=== PATIENT | female | born 1925 | race Caucasian/White ===

== ENCOUNTER 2016-08-10 16:15 | Inpatient (IN) ==
[2016-08-10] MEDS: CRANBERRY 450 MG PO SCH (20:48)
[2016-08-10] MEDS: Aspirin Enteric Coated 325 MG Tablet PO SCH (21:00)
[2016-08-10] MEDS: levETIRAcetam 250 MG TABLET PO SCH (21:00)
[2016-08-10] MEDS: *HR* OxyCODONE Immed Rel 5 MG TABLET PO PRN (21:01)
[2016-08-10] MEDS: PHENYTOIN 200 MG PO SCH (21:01)
[2016-08-11] MEDS: *HR* OxyCODONE Immed Rel 5 MG TABLET PO PRN ×3 (04:23→20:27)
[2016-08-11 05:43] LABS: Basophils % 0.4 %; Eosinophils # 0.3 K/mcL (0.0-0.6); Eosinophils % 6.5 %; Hematocrit 23.6 % (35.3-44.9); Immature Granulocytes % 0.2 % (0-4); Lymphocytes % 19.4 %; Mean Corpuscular HGB Conc 33.9 g/dL (31.6-35.5); Mean Corpuscular Hemoglobin 30.5 pg (28.0-33.3); Mean Corpuscular Volume 90.1 fL (83.0-100.0); Monocytes # 0.5 K/mcL (0.0-1.3); Monocytes % 9.1 %; Neutrophils # 3.4 K/mcL (1.6-8.9); Platelet Count 335 K/mcL (140-400); Red Blood Count 2.62 M/mcL (3.82-4.97); Red Cell Distribution Width 14.6 % (11.5-14.5); Segmented Neutrophils % 64.4 %
[2016-08-11 05:44] LABS: Prothrombin Time 11.2 Seconds (9.4-12.1)
[2016-08-11 05:47] LABS: Activated Partial Thrombo Time 29.5 Seconds (26.0-36.0)
[2016-08-11 05:54] LABS: Calcium 8.2 mg/dL (8.6-10.8)
[2016-08-11] MEDS: Cholecalciferol (D-3) 1,000 UNIT TABLET PO SCH (08:24)
[2016-08-11] MEDS: Aspirin Enteric Coated 325 MG Tablet PO SCH ×2 (08:25→20:27)
[2016-08-11] MEDS: levETIRAcetam 250 MG TABLET PO SCH ×2 (08:25→20:27)
[2016-08-11] MEDS: Furosemide 20 MG TABLET PO SCH (08:25)
[2016-08-11] MEDS: CRANBERRY 450 MG PO SCH (08:27)
[2016-08-11] MEDS: PHENYTOIN 100 MG PO SCH (08:27)
--- NOTE | 2016-08-11 12:31 | Internal Med History&Physical ---
Date of Encounter: 08/11/16 Time of Encounter: 11:59 Internal Medicine - H&P: HPI Chief complaint: Patient had a fall and fractured humerus and her femur Admitted From: Hospital to Hospital Transfer Plans for Post Hospital Care: Home History of present illness: Ms. Pena is a 89 year old female She fell fractured femur and her humerus is here now for rehabilitation. Weightbearing as tolerated Past Med Surg Social Fam HX - Past Medical History Medical history: arthritis, CVA, GERD, hyperlipidemia, hypertension, osteoporosis, seizures, thyroid disease Psychiatric history: no psych history - Past Surgical History Surgical History: cataract - Social History Smoking Status: Never smoker Smokeless Tobacco Status: No Alcohol use: none Drug use: none - Family History Mother Living Status: Hx Family Cancer: Yes (Breast) Father Living Status: Hx Family Cardiac Disorders: Yes (OK) Hx Family Respiratory Disorders: No Hx Family Cancer: No Hx Family GI Disorders: No Hx Family Endocrine Disorder: No Hx Family Neuromuscular Disorders: No Hx Family Neurologic Disorders: No Hx Family HEENT Disorders: No Hx Family Autoimmune Disorders: No Internal Medicine - H&P: Meds Furosemide [Lasix] 20 mg PO DAILY 06/22/15 [History] LevETIRAcetam [Keppra] 500 mg PO BID 06/22/15 [History] Losartan Potassium [Cozaar] 50 mg PO BID 06/22/15 [History] Simvastatin [Zocor] 40 mg PO HS 06/22/15 [History] Cholecalciferol (D-3) [Vitamin D] 2,000 unit PO DAILY 08/23/15 [History] Oxybutynin Chloride [Ditropan Xl] 10 mg PO DAILY 08/23/15 [History] Levothyroxine [Synthroid] 100 mcg PO QAM 10/09/15 [History] Cranberry Fruit Concentrate [Cranberry] 450 mg PO BID 08/07/16 [History] Pantoprazole Sodium [Protonix] 20 mg PO BID 08/07/16 [History] Polyethylene Glycol 3350 [MiraLAX bowel prep] 17 gm PO DAILY 08/07/16 [History] Aspirin Enteric Coated [Aspirin EC] 325 mg PO BID 18 Days 08/10/16 [Rx] OxyCODONE Immed Rel [Roxicodone 5 MG] 5 mg PO Q6HR PRN #20 tablet 08/10/16 [Rx] Phenytoin ER [Dilantin ER] 100 mg PO DAILY #30 capsule 08/10/16 [Rx] Phenytoin ER [Dilantin ER] 200 mg PO HS #56 capsule 08/10/16 [Rx] Allergies No Known Allergies Allergy (Verified 10/09/15 17:48) All Systems PM: A 10-system review of systems was performed and is negative for pertinent findings except as documented above in the HPI. - Constitutional Vitals: Temp Pulse Resp BP Pulse Ox 98 F 64 12 143/59 96 08/11/16 08:00 08/11/16 09:49 08/11/16 09:49 08/11/16 09:49 08/11/16 09:49 - Head Head exam: Present: atraumatic, normal inspection, normocephalic - Neck Neck exam general surgery: Present: supple, trachea midline. Absent: lymphadenopathy - Respiratory Respiratory exam: Present: CTAB. Absent: accessory muscle use, rales, rhonchi, wheezes - Cardiovascular Cardiovascular exam: Present: RRR, +S1, +S2. Absent: diastolic murmur, gallop, rubs, systolic murmur - Expanded Upper Extremities Exam Shoulder exam: Present: tenderness Internal Med - H&P Results - Labs CBC & Chem 7: 08/11/16 05:00 08/11/16 05:00 Labs: Short CBC 08/11/16 Range/Units 05:00 WBC 5.3 (4.3-11.1) K/mcL Hgb 8.0 L D (11.5-15.4) g/dL Hct 23.6 L (35.3-44.9) % Plt Count 335 (140-400) K/mcL Neutrophils # 3.4 (1.6-8.9) K/mcL BMP 08/11/16 05:00 Sodium 142 Potassium 4.0 Chloride 111 H Carbon Dioxide 22 BUN 34 H Creatinine 1.05 Glucose 96 Calcium 8.2 L Lab generally is good
[2016-08-11] MEDS: Acetaminophen 325 MG TABLET PO PRN (15:31)
[2016-08-11] MEDS: PHENYTOIN 200 MG PO SCH (20:38)
[2016-08-12] MEDS: Acetaminophen 325 MG TABLET PO PRN ×3 (04:26→20:50)
[2016-08-12] MEDS: *HR* OxyCODONE Immed Rel 5 MG TABLET PO PRN ×4 (04:26→20:50)
[2016-08-12] MEDS: levETIRAcetam 250 MG TABLET PO SCH ×2 (07:47→20:51)
[2016-08-12] MEDS: Furosemide 20 MG TABLET PO SCH (07:48)
[2016-08-12] MEDS: Aspirin Enteric Coated 325 MG Tablet PO SCH ×2 (07:48→20:50)
[2016-08-12] MEDS: Cholecalciferol (D-3) 1,000 UNIT TABLET PO SCH (07:48)
[2016-08-12] MEDS: PHENYTOIN 100 MG PO SCH (07:49)
[2016-08-12] MEDS: PHENYTOIN 200 MG PO SCH (20:51)
[2016-08-13] MEDS: Furosemide 20 MG TABLET PO SCH (09:15)
[2016-08-13] MEDS: levETIRAcetam 250 MG TABLET PO SCH ×2 (09:15→21:11)
[2016-08-13] MEDS: Aspirin Enteric Coated 325 MG Tablet PO SCH ×2 (09:15→21:10)
[2016-08-13] MEDS: Cholecalciferol (D-3) 1,000 UNIT TABLET PO SCH (09:15)
[2016-08-13] MEDS: *HR* OxyCODONE Immed Rel 5 MG TABLET PO PRN ×3 (09:16→21:10)
[2016-08-13] MEDS: PHENYTOIN 100 MG PO SCH (09:16)
--- NOTE | 2016-08-13 14:21 | Internal Med Progress Note ---
Date of Encounter: 08/13/16 Time of Encounter: 14:17 - Assessment and plan (1) Fractures involving multiple body regions Current Visit: Yes Status: Acute Assessment and plan: Patient has a left humeral fracture left femur fracture. She cannot use her left arm and is nonweightbearing. - Time Spent With Patient less than 15 minutes - Constitutional Vitals: Temp Pulse Resp BP Pulse Ox 97.9 F 66 16 125/55 96 08/13/16 07:00 08/13/16 07:00 08/13/16 07:00 08/13/16 07:00 08/13/16 07:00 - Head Head exam: Present: atraumatic, normal inspection, normocephalic - Neck Neck exam general surgery: Present: supple, trachea midline. Absent: lymphadenopathy - Respiratory Respiratory exam: Present: CTAB. Absent: accessory muscle use, rales, rhonchi, wheezes - Cardiovascular Cardiovascular exam: Present: RRR, +S1, +S2. Absent: diastolic murmur, gallop, rubs, systolic murmur Internal Medicine: Result - Labs CBC & Chem 7: 08/11/16 05:00 08/11/16 05:00 Labs: All problem Mrs. Li she can use her arm due to her humeral fracture on the left. Now they are saying she is nonweightbearing on her left leg. And she really is able to do minimal. So the staff is going to recommend discharge. - ABG Interpretation ABG results: PT/INR, D-dimer PT 11.2 Seconds (9.4-12.1) 08/11/16 05:00 - VTE Documentation of Mechanical Device: Graduated compression elastic hosiery Consult Discharge Plan - Plan Referrals: Paul Tineo DO [Primary Care Provider] - 08/25/16 1:30 pm ( 2. Paul Tineo DO (internal Medicine) ) Harman Rebolledo MD [Partnered Physician] - 08/21/16 11:20 am (follow up appointment)
--- NOTE | 2016-08-13 15:25 | Psychological Evaluation ---
Date of Encounter: 08/13/16 Time of Encounter: 10:30 History of Present Illness History of present illness: Ms. Pena is an 89 year old female admitted to [facility] after a fall at her home in which she fractured her humerus and her femur (left). She was previously a patient at [facility] October 2015 for rehabilitation following a CVA. She was seen on this date to assess her current cognitive and emotional functioning. Past Medical History Medical history: Significant for arthritis, CVA (2016), GERD, hyperlipidemia, HTN, osteoporosis, seizures and thyroid disease. - Psychiatric History Psychiatric history: Reports: no psych history (There is no known family history of psychiatric or mental health issues.) Home Medications and Allergies Furosemide [Lasix] 20 mg PO DAILY 06/22/15 [History] LevETIRAcetam [Keppra] 500 mg PO BID 06/22/15 [History] Losartan Potassium [Cozaar] 50 mg PO BID 06/22/15 [History] Simvastatin [Zocor] 40 mg PO HS 06/22/15 [History] Cholecalciferol (D-3) [Vitamin D] 2,000 unit PO DAILY 08/23/15 [History] Oxybutynin Chloride [Ditropan Xl] 10 mg PO DAILY 08/23/15 [History] Levothyroxine [Synthroid] 100 mcg PO QAM 10/09/15 [History] Cranberry Fruit Concentrate [Cranberry] 450 mg PO BID 08/07/16 [History] Pantoprazole Sodium [Protonix] 20 mg PO BID 08/07/16 [History] Polyethylene Glycol 3350 [MiraLAX bowel prep] 17 gm PO DAILY 08/07/16 [History] Aspirin Enteric Coated [Aspirin EC] 325 mg PO BID 18 Days 08/10/16 [Rx] OxyCODONE Immed Rel [Roxicodone 5 MG] 5 mg PO Q6HR PRN #20 tablet 08/10/16 [Rx] Phenytoin ER [Dilantin ER] 100 mg PO DAILY #30 capsule 08/10/16 [Rx] Phenytoin ER [Dilantin ER] 200 mg PO HS #56 capsule 08/10/16 [Rx] Allergies No Known Allergies Allergy (Verified 10/09/15 17:48) Social History - Social History Social History: Ms. Pena is a and lives with her daughter. She has reportedly been a for over 30 years. She has two sons and one daughter and described being very close to her children and their families. Her children provide her daily care and supervision. She stated that she does not do anything at her home because "they won't let me". Her children manage the household and her medications. She manages her own finances. Her typical day consists of playing euchre, watching TV, reading, drawing/coloring and playing solitaire. - Tobacco Use Smoking Status: Never smoker - Alcohol Use Alcohol Use: none Cognitive/Emotional Assessment - Cognitive Ability Additional Findings: Ms. Pena was alert, attentive and partially oriented (provided correct information for person and time but gave place as "[place]"). Immediate recall, confrontational naming and auditory comprehension were adequate. She was unable to do rote arithmetic and performed in the moderate-mildly impaired range on a measure of delayed verbal recall. She exhibited problems with storage and retrieval of new information. Her performance was not aided with recognition (multiple choice) cueing. Speech was clear, fluent and effective. Thought processes were logical and coherent. She was noted to be talkative and thought processes were tangential. - Emotional Status Additional Findings: Ms. Pena was pleasant, cooperative and friendly. She described her current mood as "fair" and acknowledged that she feels distressed at times that she is "putting pressure on my kids". She worries about being a "burden". She described being close to her family and enjoying watching her grandchildren play sports (soccer and softball). She spoke with pride at their accomplishments. Assessment & Plan - Diagnosis (1) Adjustment disorder with mixed anxiety and depressed mood - Treatment Plan Treatment Plan/Recommendations: Will follow Ms. Pena to provide supportive counseling as needed while she is an inpatient at [facility].
[2016-08-13] MEDS: Acetaminophen 325 MG TABLET PO PRN (21:11)
[2016-08-13] MEDS: PHENYTOIN 200 MG PO SCH (21:16)
[2016-08-14] MEDS: *HR* OxyCODONE Immed Rel 5 MG TABLET PO PRN ×4 (04:37→20:04)
[2016-08-14] MEDS: Cholecalciferol (D-3) 1,000 UNIT TABLET PO SCH (09:34)
[2016-08-14] MEDS: levETIRAcetam 250 MG TABLET PO SCH ×2 (09:35→20:03)
[2016-08-14] MEDS: PHENYTOIN 100 MG PO SCH (09:36)
[2016-08-14] MEDS: Furosemide 20 MG TABLET PO SCH (09:36)
[2016-08-14] MEDS: Aspirin Enteric Coated 325 MG Tablet PO SCH ×2 (09:36→20:01)
--- NOTE | 2016-08-14 13:45 | Internal Med Progress Note ---
Date of Encounter: 08/14/16 Time of Encounter: 13:43 - Assessment and plan (1) Fractures involving multiple body regions Current Visit: Yes Status: Acute Assessment and plan: Fractured both left humerus left femur. She is nonweightbearing. She transfers her - Time Spent With Patient less than 15 minutes - Subjective Interval history: Patient states his shoulder still hurts but otherwise she said she is doing okay - Constitutional Vitals: Temp Pulse Resp BP Pulse Ox 98.3 F 71 16 134/58 98 08/14/16 07:38 08/14/16 07:38 08/14/16 07:38 08/14/16 07:38 08/14/16 07:38 - Head Head exam: Present: atraumatic, normal inspection, normocephalic - Neck Neck exam general surgery: Present: supple, trachea midline. Absent: lymphadenopathy - Respiratory Respiratory exam: Present: CTAB. Absent: accessory muscle use, rales, rhonchi, wheezes - Cardiovascular Cardiovascular exam: Present: RRR, +S1, +S2. Absent: diastolic murmur, gallop, rubs, systolic murmur Internal Medicine: Result - Labs CBC & Chem 7: 08/11/16 05:00 08/11/16 05:00 Labs: Lab is stable - ABG Interpretation ABG results: PT/INR, D-dimer PT 11.2 Seconds (9.4-12.1) 08/11/16 05:00 - VTE Documentation of Mechanical Device: Graduated compression elastic hosiery Consult Discharge Plan - Plan Referrals: Paul Tineo DO [Primary Care Provider] - 08/25/16 1:30 pm ( 2. Paul Tineo DO (internal Medicine) ) Harman Rebolledo MD [Partnered Physician] - 08/21/16 11:20 am (follow up appointment)
[2016-08-14] MEDS: Acetaminophen 325 MG TABLET PO PRN (14:26)
[2016-08-14] MEDS: PHENYTOIN 200 MG PO SCH (20:04)
[2016-08-15] MEDS: *HR* OxyCODONE Immed Rel 5 MG TABLET PO PRN (08:26)
[2016-08-15] MEDS: Cholecalciferol (D-3) 1,000 UNIT TABLET PO SCH (08:27)
[2016-08-15] MEDS: levETIRAcetam 250 MG TABLET PO SCH ×2 (08:27→19:44)
[2016-08-15] MEDS: Aspirin Enteric Coated 325 MG Tablet PO SCH ×2 (08:27→19:42)
[2016-08-15] MEDS: PHENYTOIN 100 MG PO SCH (08:28)
[2016-08-15] MEDS: Furosemide 20 MG TABLET PO SCH (08:28)
[2016-08-15] MEDS: Acetaminophen 325 MG TABLET PO PRN (09:45)
--- NOTE | 2016-08-15 10:30 | Physician Discharge Referral ---
ExtendedCare Referral Info Transfer To: [facility] Level of Care: Skilled - Diagnosis (1) Shoulder fracture, left Priority: Primary Status: Acute (2) Hip fracture, left Priority: Primary Status: Acute Expected Duration of Placement: less than 30 days Prognosis: Fair Aware of Diagnosis: Patient, Family Aware of Prognosis: Patient, Family - Transfer Medications Home Medications: Furosemide [Lasix] 20 mg PO DAILY 06/22/15 [History] LevETIRAcetam [Keppra] 500 mg PO BID 06/22/15 [History] Losartan Potassium [Cozaar] 50 mg PO BID 06/22/15 [History] Simvastatin [Zocor] 40 mg PO HS 06/22/15 [History] Cholecalciferol (D-3) [Vitamin D] 2,000 unit PO DAILY 08/23/15 [History] Oxybutynin Chloride [Ditropan Xl] 10 mg PO DAILY 08/23/15 [History] Levothyroxine [Synthroid] 100 mcg PO QAM 10/09/15 [History] Cranberry Fruit Concentrate [Cranberry] 450 mg PO BID 08/07/16 [History] Pantoprazole Sodium [Protonix] 20 mg PO BID 08/07/16 [History] Polyethylene Glycol 3350 [MiraLAX bowel prep] 17 gm PO DAILY 08/07/16 [History] Aspirin Enteric Coated [Aspirin EC] 325 mg PO BID 18 Days 08/10/16 [Rx] OxyCODONE Immed Rel [Roxicodone 5 MG] 5 mg PO Q6HR PRN #20 tablet 08/10/16 [Rx] Phenytoin ER [Dilantin ER] 100 mg PO DAILY #30 capsule 08/10/16 [Rx] Phenytoin ER [Dilantin ER] 200 mg PO HS #56 capsule 08/10/16 [Rx] Allergies/Adverse Reactions: Allergies No Known Allergies Allergy (Verified 10/09/15 17:48) - Respiratory Orders Smoking Cessation: Smoking cessation has been advised. For more information, call the [place] Tobacco Quit Line at 7-475-XCXQ-NOW. - Mobility Orders Chair - Rehabiliation Orders Rehab Orders: Evaluation for Physical Therapy, Evaluation for Occupational Therapy - Diet Orders Regular CERTIFICATION: I certify that the transfer of the above named patient to an Extended Care Facility is necessary for the continuing treatment of the diagnosis listed. The above information is true and accurate reflection of patient's current condition. Confidential - Redisclosure prohibited without a patient's written consent.
--- NOTE | 2016-08-15 11:51 | Discharge Summary ---
Date of Encounter: 08/15/16 Time of Encounter: 11:49 - Discharge Diagnosis (1) Shoulder fracture, left Priority: Primary Status: Acute Qualifiers: Encounter type: initial encounter Fracture type: closed Qualified Code(s) : S42.92XA - Fracture of left shoulder girdle, part unspecified, initial encounter for closed fracture (2) Hip fracture, left Priority: Primary Status: Acute Qualifiers: Encounter type: initial encounter Fracture type: closed Qualified Code(s) : S72.002A - Fracture of unspecified part of neck of left femur, initial encounter for closed fracture - Discharge Medications Home Medications: Furosemide [Lasix] 20 mg PO DAILY 06/22/15 [History] LevETIRAcetam [Keppra] 500 mg PO BID 06/22/15 [History] Losartan Potassium [Cozaar] 50 mg PO BID 06/22/15 [History] Simvastatin [Zocor] 40 mg PO HS 06/22/15 [History] Cholecalciferol (D-3) [Vitamin D] 2,000 unit PO DAILY 08/23/15 [History] Oxybutynin Chloride [Ditropan Xl] 10 mg PO DAILY 08/23/15 [History] Levothyroxine [Synthroid] 100 mcg PO QAM 10/09/15 [History] Cranberry Fruit Concentrate [Cranberry] 450 mg PO BID 08/07/16 [History] Pantoprazole Sodium [Protonix] 20 mg PO BID 08/07/16 [History] Polyethylene Glycol 3350 [MiraLAX bowel prep] 17 gm PO DAILY 08/07/16 [History] Aspirin Enteric Coated [Aspirin EC] 325 mg PO BID 18 Days 08/10/16 [Rx] OxyCODONE Immed Rel [Roxicodone 5 MG] 5 mg PO Q6HR PRN #20 tablet 08/10/16 [Rx] Phenytoin ER [Dilantin ER] 100 mg PO DAILY #30 capsule 08/10/16 [Rx] Phenytoin ER [Dilantin ER] 200 mg PO HS #56 capsule 08/10/16 [Rx] Allergies/Adverse Reactions: Allergies No Known Allergies Allergy (Verified 10/09/15 17:48) Date of admission: 08/10/16 17:16 Primary care physician: Paul Tineo DO Consults: 08/10/16 18:00 Consult to Occupational Therapy [CONS] Routine Comment: EVAL AND TX Reason for Consult: EVAL AND TX Consult to Physical Therapy [CONS] Routine Comment: EVAL AND TX Reason for Consult: EVAL AND TX Consult to Recreational Therapy [CONS] Routine Comment: Consult to Investment Accountant [CONS] Routine Reason for SW Consult: EVAL AND TX 08/11/16 14:39 Consult to Psychology [CONS] Routine Consulting Provider: Chrissie Bang Reason for Consult: rehab swing patient Call Completed: No Discharging clinician: Francine Rollins Anticipated date of discharge: 08/16/16 - Patient Status Disposition: Home, Self-Care Condition: Good Functional capacity at discharge: uses cane/walker Overall status at discharge: patient is progressing back to baseline - Discharge Instructions Follow Up With: Paul Tineo DO [Primary Care Provider] - 08/25/16 1:30 pm ( 2. Paul Tineo DO (internal Medicine) ) Harman Rebolledo MD [Partnered Physician] - 08/21/16 11:20 am (follow up appointment) - Diet and Activity Activity: as per physical therapy Diet: advance to your usual diet Hospital course: Ms. Pena is a 89 year old female admitted to this facility status post left shoulder close fracture and left hip fracture with pinning. She underwent PT and OT. She showed significant improvements in terms of her transfer, gait endurance improving her ADL. She will be discharged tomorrow to continue with outpatient PT OT. On today's examination she states that she is feeling better. She states that she is feeling stronger she still has some pain or no shortness of breath. No chest pain. Time spent discussing smoking cessation with patient: 3 to 10 minutes - Time Spent with Patient Total time spent providing and/or coordinating discharge services: Less than 30 minutes - Constitutional Vitals: Temp Pulse Resp BP Pulse Ox 97.6 F 69 16 125/60 95 08/15/16 08:00 08/15/16 08:00 08/15/16 08:00 08/15/16 08:00 08/15/16 08:00 General appearance: Present: A&O X 3, pleasant, no acute distress - Neck Neck exam general surgery: Present: supple, trachea midline. Absent: lymphadenopathy - Respiratory Respiratory exam: Present: CTAB. Absent: accessory muscle use, rales, rhonchi, wheezes - Cardiovascular Cardiovascular exam: Present: RRR, +S1, +S2. Absent: diastolic murmur, gallop, rubs, systolic murmur - GI/Abdominal GI/Abdominal exam: Present: normal bowel sounds, soft, no peritoneal signs. Absent: distended, tenderness - Expanded Upper Extremities Exam Shoulder exam: Present: tenderness - Expanded Lower Extremities Exam Hip exam: Present: tenderness - VTE Documentation of Mechanical Device: Graduated compression elastic hosiery
[2016-08-15] MEDS: PHENYTOIN 200 MG PO SCH (19:45)
[2016-08-16 07:03] VITALS: BP 163/67
[2016-08-16] MEDS: Furosemide 20 MG TABLET PO SCH (08:07)
[2016-08-16] MEDS: levETIRAcetam 250 MG TABLET PO SCH (08:07)
[2016-08-16] MEDS: Cholecalciferol (D-3) 1,000 UNIT TABLET PO SCH (08:07)
[2016-08-16] MEDS: Aspirin Enteric Coated 325 MG Tablet PO SCH (08:08)
[2016-08-16] MEDS: PHENYTOIN 100 MG PO SCH (08:09)
[2016-08-16] MEDS: *HR* OxyCODONE Immed Rel 5 MG TABLET PO PRN (11:56)
== END 2016-08-16 12:05 | DRG 561 ==
LOC: INPGRE 17:16
PROVIDERS: ADMIT Internal Medicine; ATTEND Internal Medicine